=== PATIENT | male | born 2000 | race African-American/Black ===

== ENCOUNTER 2019-08-13 08:35 | Emergency (ER) | payer OTHER ==
[~2019-08-13] VITALS: Ht 180.3 cm; Wt 79.0 kg
[2019-08-13] MEDS ORDERED: acetaminophen 325mg tablet PO ONE (09:25)
[2019-08-13] MEDS ORDERED: PENI500T2 PO (09:42)
== END 2019-08-13 09:56 | disposition home or self-care (01) ==
LOC: ER 08:37
DX: J02.9 Acute pharyngitis, unspecified (principal); R53.83 Other fatigue; Z79.2 Long term (current) use of antibiotics
CPT/HCPCS: 87081; 87880; 99283